=== PATIENT | female | born 1955 | race Caucasian/White ===

== ENCOUNTER 2017-09-27 15:49 | Emergency (ER) | payer OTHER ==
[~2017-09-27] VITALS: Ht 167.6 cm; Wt 77.7 kg
--- NOTE | 2017-09-27 17:54 | REP ---
Left wrist series: Four views. History: Injury in a fall. Findings: Four views of the left wrist demonstrate some diffuse osteopenia. There is a slightly impacted nondisplaced fracture of the distal radial metaphysis with an associated ulnar styloid chip fracture. There is surrounding swelling. No carpal or metacarpal fracture is seen. Impression: Impacted distal radial metaphyseal fracture. Ulnar styloid chip fracture. Osteopenia. Signed by Shlomo Soto MD 09/27/2017 08:32 P
[2017-09-27] MEDS ORDERED: PERCOCET 5MG/325MG TAB PO ONE (18:00)
[2017-09-27] MEDS ORDERED: PERC5TAB12 PO (18:58)
[2017-09-27 19:12] VITALS: BP 140/80
== END 2017-09-27 19:15 | disposition home or self-care (01) ==
LOC: M ED 15:49
DX: S52.592A Other fractures of lower end of left radius, initial encounter for closed fracture (principal); S52.612A Displaced fracture of left ulna styloid process, initial encounter for closed fracture; W19.XXXA Unspecified fall, initial encounter; Y92.219 Unspecified school as the place of occurrence of the external cause; Y93.9 Activity, unspecified; Y99.0 Civilian activity done for income or pay; Z88.5 Allergy status to narcotic agent; Z88.0 Allergy status to penicillin; Z88.8 Allergy status to other drugs, medicaments and biological substances

== ENCOUNTER 2018-02-21 07:07 | Day surgery (SDC) | payer OTHER ==
[2018-02-21] MEDS: NS 1,000 ML IV (07:35)
[2018-02-21] MEDS ORDERED: PROPOFOL 500 MG/50 ML VIAL As Ordered (08:16)
[2018-02-21] MEDS ORDERED: LIDOCAINE 2% INJ 100 MG/5 ML SDV (FOR ANES.) As Ordered (08:16)
== END 2018-02-21 09:00 | disposition home or self-care (01) ==
LOC: M OPP 07:07
DX: Z12.11 Encounter for screening for malignant neoplasm of colon (principal); Z86.010 Personal history of colon polyps; K64.8 Other hemorrhoids; Z78.0 Asymptomatic menopausal state; Z80.0 Family history of malignant neoplasm of digestive organs; Z80.51 Family history of malignant neoplasm of kidney; Z80.8 Family history of malignant neoplasm of other organs or systems; Z88.5 Allergy status to narcotic agent; Z88.8 Allergy status to other drugs, medicaments and biological substances; Z88.0 Allergy status to penicillin
CPT/HCPCS: 45378

== ENCOUNTER → 2018-08-04 | Outpatient (CLI) | payer OTHER | LOC: M WHC 15:33 | DX: Z12.31 Encounter for screening mammogram for malignant neoplasm of breast (principal); Z13.820 Encounter for screening for osteoporosis; N60.31 Fibrosclerosis of right breast; N60.32 Fibrosclerosis of left breast; M85.88 Other specified disorders of bone density and structure, other site; M85.851 Other specified disorders of bone density and structure, right thigh; M85.852 Other specified disorders of bone density and structure, left thigh ==

== ENCOUNTER → 2019-07-25 | Outpatient (REF) | payer OTHER ==
[~2019-07-25] MED LIST: CALC750T PO; LAVEOIL XX; MULT1TAB10 PO; PERC5TAB12 PO; TURM450C PO; VITA200015 PO
[2019-07-29 15:10] LABS: HPV HYBRID CAPTURE II Negative (Negative)
== END ==
LOC: M LAB REF 11:55
PROVIDERS: ATTEND Advanced Practice Midwife
DX: Z12.4 Encounter for screening for malignant neoplasm of cervix (principal)
CPT/HCPCS: 87624; G0123

== ENCOUNTER → 2019-10-11 | Outpatient (CLI) | payer OTHER ==
--- NOTE | 2019-10-11 10:02 | REP ---
Four views right foot: 10/11/2019. Indication: Right foot pain. Comparison: None. Findings: There is a minimally displaced, obliquely oriented fracture through the proximal aspect of the first proximal phalanx best appreciated on page 2. No additional fractures are present. There is no evidence of subluxation or dislocation. Impression: Minimally displaced, obliquely oriented fracture of the first proximal phalanx as described that extends to the articulating surface. Electronically Signed by Luis Alfredo Ceballos DO 10/11/2019 09:53 A
== END ==
LOC: M WUC 09:08
PROVIDERS: ATTEND Physician Assistant
DX: S92.901A Unspecified fracture of right foot, initial encounter for closed fracture (principal); X58.XXXA Exposure to other specified factors, initial encounter; Y92.89 Other specified places as the place of occurrence of the external cause

== ENCOUNTER → 2019-11-03 | Outpatient (CLI) | payer OTHER ==
--- NOTE | 2019-11-03 11:58 | REPMRS ---
Patient History The patient states she had a clinical breast exam in 2018. No known family history of cancer. Took hormonal contraceptives for 3 years. Digital Woman Screen Mammo: November 03, 2019 - Exam #: [id number] Bilateral CC and MLO view(s) were taken. Technologist: Maritza Mendoza, Technologist Prior study comparison: August 04, 2018, bilateral digital woman screen mammo performed at [facility]. October 29, 2016, digital woman screen mammo performed at [facility]. September 10, 2015, digital woman screen mammo performed at [facility]. FINDINGS: The breast tissue is heterogeneously dense. This may lower the sensitivity of mammography. There is a moderate amount of heterogeneously dense fibroglandular tissue which is fairly symmetric. There is no interval development of dominant mass, architectural distortion, or grouped microcalcification typical of malignancy. There has been no change in the appearance of the mammogram from the prior studies. 3-D tomosynthesis shows no additional findings. Assessment: BI-RADS/ACR category 1 mammogram. Negative Mammogram. Recommendation Routine screening mammogram of both breasts in 1 year (for women over age 40). This patient's Lifetime Breast Cancer RIsk is estimated at 6.8 %. This mammogram was interpreted with the aid of an FDA-approved computer-aided dectection system. Electronically Signed By: Josr Soto MD 11/03/19 [id number]
== END ==
LOC: M WHC 10:55
PROVIDERS: ATTEND Advanced Practice Midwife
DX: Z12.31 Encounter for screening mammogram for malignant neoplasm of breast (principal)

== ENCOUNTER → 2019-11-10 | Outpatient (CLI) | payer OTHER ==
--- NOTE | 2019-11-10 19:31 | REP ---
MRI RIGHT FOOT: TECHNIQUE: Multiple sequences were obtained in the axial, coronal, and sagittal planes. On T2 weighted images there is abnormal increased signal involving the peroneus longus tendon in the region of the calcaneal cuboid joint. There is mild fluid around the tendon. Findings suggest a moderate degree of tenosynovitis or partial tear of the tendon. The adjacent peroneus brevis is intact. The flexor hallicis longus, flexor digitorum longus, and anterior and posterior tibial tendons are intact. The visualized ligamentous structures at the ankle are intact. Flexor and extensor tendons of the foot are intact with no tenosynovitis. Achilles tendon is intact. A tiny subcortical cyst is seen in the posterior calcaneus subcentimeter in diameter. There is no bone marrow edema or occult fracture. There is mild arthritic change at the first metatarsal phalangeal joint with some minimal subchondral marrow edema in the head of the first metatarsal. No ganglion cyst is seen. There is a normal amount of scattered joint fluid. IMPRESSION: Abnormal signal in the peroneus longus tendon adjacent to the calcaneal cuboid joint with mild fluid around the tendon at that location. The findings are compatible with a moderate degree of tenosynovitis or a partial tear of the tendon. Mild to moderate arthritic change first metatarsal phalangeal joint. Electronically Signed by Tonny Devine MD 11/11/2019 03:30 P
== END ==
LOC: M RAD 16:25
PROVIDERS: ATTEND Orthopaedic Surgery Sports Medicine
DX: M19.071 Primary osteoarthritis, right ankle and foot (principal)

== ENCOUNTER → 2021-09-01 | Outpatient (REF) | payer OTHER | LOC: M SFHCWAGY 13:15 | PROVIDERS: ATTEND Advanced Practice Midwife | DX: Z12.4 Encounter for screening for malignant neoplasm of cervix (principal); N95.8 Other specified menopausal and perimenopausal disorders | CPT/HCPCS: 87624; G0123 ==

== ENCOUNTER → 2021-10-27 | Outpatient (CLI) | payer OTHER | LOC: M WHC 07:55 | PROVIDERS: ATTEND Advanced Practice Midwife | DX: Z12.31 Encounter for screening mammogram for malignant neoplasm of breast (principal) ==

== ENCOUNTER 2023-08-06 09:06 | Day surgery (SDC) | payer OTHER ==
[~2023-08-06] VITALS: Ht 167.6 cm; Wt 77.5 kg
[~2023-08-06 09:06] MED LIST changes: +ELDE350C PO; +FISH OIL PO; +MAG100TA PO; +NS 1,000 ML IV ONE; +RA T500C2 PO; +VIT1CAPS27 PO; +VITA100093 PO; +[UNRECOGNIZED DRUG - CODE] PO
[2023-08-06] MEDS ORDERED: propofoL 200 MG/20 ML VIAL As Ordered ONE ×2 (10:33→11:05)
[2023-08-06 11:17] VITALS: TEMP 97.3
[2023-08-06 11:45] VITALS: BP 124/80; O2SAT 99
== END 2023-08-06 11:57 | disposition home or self-care (01) ==
LOC: M OPP 09:06
PROVIDERS: ATTEND Internal Medicine Gastroenterology
DX: Z12.11 Encounter for screening for malignant neoplasm of colon (principal); Z86.010 Personal history of colon polyps; D12.4 Benign neoplasm of descending colon

== ENCOUNTER → 2023-10-08 | Outpatient (CLI) | payer OTHER ==
[~2023-10-08] MED LIST changes: -NS 1,000 ML IV ONE
== END ==
LOC: M WHC 09:29
PROVIDERS: ATTEND Advanced Practice Midwife
DX: Z12.31 Encounter for screening mammogram for malignant neoplasm of breast (principal)

== ENCOUNTER 2024-09-15 14:28 | Emergency (ER) | payer MEDICARE, OTHER ==
[~2024-09-15] VITALS: Ht 167.6 cm; Wt 84.8 kg
[2024-09-15 17:02] VITALS: BP 140/75; TEMP 98.2; O2SAT 96
== END 2024-09-15 17:23 | disposition home or self-care (01) ==
LOC: M ED 14:28
DX: R07.89 Other chest pain (principal); W01.198A Fall on same level from slipping, tripping and stumbling with subsequent striking against other object, initial encounter; Y92.218 Other school as the place of occurrence of the external cause; Y93.89 Activity, other specified; Y99.0 Civilian activity done for income or pay; Z79.899 Other long term (current) drug therapy

== ENCOUNTER → 2024-10-16 | Outpatient (REF) | payer OTHER ==
[2024-10-18 15:17] LABS: HPV APTIMA Not Detected (Not Detected)
== END ==
LOC: M SFHCWAGY 17:34
PROVIDERS: ATTEND Advanced Practice Midwife
DX: Z12.4 Encounter for screening for malignant neoplasm of cervix (principal)
CPT/HCPCS: 87624; G0123

== ENCOUNTER → 2024-10-16 | Outpatient (CLI) | payer OTHER | LOC: M WHC 14:05 | PROVIDERS: ATTEND Advanced Practice Midwife | DX: Z12.31 Encounter for screening mammogram for malignant neoplasm of breast (principal); R92.323 Mammographic fibroglandular density, bilateral breasts ==

== ENCOUNTER → 2024-12-19 | Outpatient (CLI) | payer OTHER | LOC: M RAD 15:25 | PROVIDERS: ATTEND Nurse Practitioner Adult Health | DX: D17.1 Benign lipomatous neoplasm of skin and subcutaneous tissue of trunk (principal) ==

== ENCOUNTER → 2025-08-21 | Outpatient (CLI) | payer OTHER ==
[~2025-08-21] MED LIST changes: -RA T500C2 PO; +TURM500C10 PO
== END ==
LOC: M WUC 14:54
PROVIDERS: ATTEND Nurse Practitioner Adult Health
DX: M25.511 Pain in right shoulder (principal)

== ENCOUNTER → 2025-10-19 | Outpatient (CLI) | payer OTHER | LOC: M WHC 10:12 | PROVIDERS: ATTEND Advanced Practice Midwife | DX: Z12.31 Encounter for screening mammogram for malignant neoplasm of breast (principal) ==